=== PATIENT | female | born 1945 | race Caucasian/White ===

== ENCOUNTER → 2016-09-05 | Outpatient (REF) | payer MEDICARE, OTHER ==
[~2016-09-05] MED LIST: /ATOR40TA; /WARF5TA; AVALIDE; BABY81CH; CALCCHW12; PERC5TAB8; SYNT50TA; XALATAN
== END ==
LOC: M LAB REF 12:48
PROVIDERS: ATTEND Family Medicine
DX: Z01.89 Encounter for other specified special examinations (principal)

== ENCOUNTER → 2016-10-10 | Outpatient (CLI) | payer MEDICARE, BC, OTHER ==
[~2016-10-10] MED LIST changes: +ASPI1TAB PO; +ATOR40TA75 PO; +BROM0.07 OS; +CALCTAB75 PO; +CO Q200C10 PO; +LATA5OPD OU; +LEVO75TA4 PO; +LOSA50TA5 PO; +PRED1SUS OS; +PREDOPD OS; +TIMO5OPG OU; +[UNRECOGNIZED DRUG - OTHER] OS
--- NOTE | 2016-10-10 13:32 | REP ---
PA and lateral chest: Comparison is a 02/17/2008. Lung michelle are clear. Cardiac size is normal. The tiara and mediastinum are unremarkable and unchanged. There is surgical fusion of the lumbar spine as an interval change. Impression: Essentially negative PA and lateral chest. There is no interval change except for interval surgical fusion of the lumbar spine. Signed by Chuy Campos MD 10/10/2016 01:24 P
[2016-10-10 14:09] LABS: ANION GAP 8 MEQ/L (8-16); BLOOD UREA NITROGEN 13 MG/DL (7-18); CALCIUM LEVEL 9.4 MG/DL (8.8-10.2); CARBON DIOXIDE LEVEL 28 MEQ/L (21-32); CHLORIDE LEVEL 106 MEQ/L (98-107); CREATININE FOR GFR 0.86 MG/DL (0.55-1.02); GLOMERULAR FILTRATION RATE > 60.0 (>39); GLUCOSE, FASTING 93 MG/DL (83-110); POTASSIUM SERUM 3.8 MEQ/L (3.5-5.1); SODIUM LEVEL 142 MEQ/L (136-145)
--- NOTE | 2016-10-10 21:20 | ECGEPIP ---
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
== END ==
LOC: M LAB 12:43
PROVIDERS: ATTEND Ophthalmology
DX: Z01.818 Encounter for other preprocedural examination (principal); E78.00 Pure hypercholesterolemia, unspecified; I49.9 Cardiac arrhythmia, unspecified; R94.31 Abnormal electrocardiogram [ECG] [EKG]

== ENCOUNTER 2016-12-17 08:49 | Emergency (ER) | payer MEDICARE, BC, OTHER ==
[~2016-12-17] VITALS: Ht 165.1 cm; Wt 67.3 kg
[~2016-12-17 08:49] MED LIST changes: -PRED1SUS OS
[2016-12-17 08:52] VITALS: BP 161/71
[2016-12-17] MEDS ORDERED: PRED1SUS OS ×2 (09:23→09:29)
== END 2016-12-17 09:34 | disposition home or self-care (01) ==
LOC: M ED 08:49
DX: H53.8 Other visual disturbances (principal); E03.9 Hypothyroidism, unspecified; Z79.899 Other long term (current) drug therapy; Z79.82 Long term (current) use of aspirin; Z88.8 Allergy status to other drugs, medicaments and biological substances

== ENCOUNTER 2016-12-18 07:59 | Outpatient (CLI) | payer MEDICARE, BC, OTHER ==
[~2016-12-18] VITALS: Ht 165.1 cm; Wt 67.1 kg
[~2016-12-18 07:59] MED LIST changes: +PRED1SUS OS
[2016-12-18] MEDS ORDERED: NS 1,000 ML IV ONE (08:15)
[2016-12-18] MEDS ORDERED: PROPOFOL 200 MG/20 ML VIAL As Ordered ONE ×2 (09:00→09:26)
--- NOTE | 2016-12-18 09:18 | ROOR ---
Patient Name: Laura Berry Procedure Date: 12/18/2016 8:53 AM Date of : 1945 Age: 71 Room: [facility] Gender: Female Note Status: Finalized Procedure: Total Colonoscopy to Cecum + Biopsy Polypectomy Indications: High risk colon cancer surveillance: Personal history of colonic polyps, Last colonoscopy: 2013 Providers: Dave Allison MD Referring MD: Ernst Mcconnell MD Requesting Provider: Medicines: Monitored Anesthesia Care Complications: No immediate complications. Procedure: Pre-Anesthesia Assessment: - The heart rate, respiratory rate, oxygen saturations, blood pressure, adequacy of pulmonary ventilation, and response to care were monitored throughout the procedure. The Colonoscope was introduced through the anus and advanced to the cecum, identified by appendiceal orifice and ileocecal valve. The colonoscopy was performed without difficulty. The patient tolerated the procedure well. The quality of the bowel preparation was good. Findings: The perianal and digital rectal examinations were normal. Non-bleeding internal hemorrhoids were found during retroflexion. The hemorrhoids were mild, small and Grade I (internal hemorrhoids that do not prolapse). Multiple small and large-mouthed diverticula were found in the recto-sigmoid colon, sigmoid colon and descending colon. A small polyp was found in the rectum. The polyp was sessile. The polyp was removed with a jumbo cold forceps. Resection and retrieval were complete. The exam was otherwise without abnormality on direct and retroflexion views. Impression: - Non-bleeding internal hemorrhoids. - Diverticulosis in the recto-sigmoid colon, in the sigmoid colon and in the descending colon. - One small polyp in the rectum, removed with a jumbo cold forceps. Resected and retrieved. - The examination was otherwise normal on direct and retroflexion views. - The exam was otherwise normal to the cecum. Recommendation: - Patient has a contact number available for emergencies. The signs and symptoms of potential delayed complications were discussed with the patient. Return to normal activities tomorrow. Written discharge instructions were provided to the patient. - High fiber diet. - Discharge patient to home. - Continue present medications. - Await pathology results. - Telephone GI clinic for pathology results in 1 week. - Repeat colonoscopy for symptoms only. - Return to referring physician. Dave Allison MD Dave Allison MD 12/18/2016 9:18:22 AM This report has been signed electronically. Number of Addenda: 0 Note Initiated On: 12/18/2016 8:53 AM Estimated Blood Loss: Estimated blood loss: none.
[2016-12-18 09:39] VITALS: BP 132/73
== END 2016-12-18 09:46 | disposition home or self-care (01) ==
LOC: M OPP 07:59
PROVIDERS: ATTEND Internal Medicine Gastroenterology
DX: Z12.11 Encounter for screening for malignant neoplasm of colon (principal); Z86.010 Personal history of colon polyps; K62.1 Rectal polyp; K64.0 First degree hemorrhoids; K57.30 Diverticulosis of large intestine without perforation or abscess without bleeding; I10 Essential (primary) hypertension; E78.5 Hyperlipidemia, unspecified; E03.9 Hypothyroidism, unspecified; M19.90 Unspecified osteoarthritis, unspecified site; M54.9 Dorsalgia, unspecified; M25.60 Stiffness of unspecified joint, not elsewhere classified; H91.93 Unspecified hearing loss, bilateral; Z96.641 Presence of right artificial hip joint; Z88.8 Allergy status to other drugs, medicaments and biological substances; Z91.030 Bee allergy status; Z79.82 Long term (current) use of aspirin; Z79.899 Other long term (current) drug therapy

== ENCOUNTER 2017-04-12 08:01 | Day surgery (SDC) | payer MEDICARE, BC, OTHER ==
[~2017-04-12 08:01] MED LIST changes: -/ATOR40TA; -/WARF5TA; -ASPI1TAB PO; -ATOR40TA75 PO; -AVALIDE; -BABY81CH; -BROM0.07 OS; -CALCCHW12; -CALCTAB75 PO; -CO Q200C10 PO; -LATA5OPD OU; -LEVO75TA4 PO; -LOSA50TA5 PO; +MIDAZOLAM INJ 2 MG/2 ML VIAL (J2250) As Ordered; -PERC5TAB8; -PRED1SUS OS; -PREDOPD OS; -SYNT50TA; -TIMO5OPG OU; -XALATAN; -[UNRECOGNIZED DRUG - OTHER] OS; +fentaNYL 100 MCG/2 ML INJECTION (J3010) As Ordered
[2017-04-12] MEDS: POVIDONE-IODINE 5% OPHTH PREP SOL 30ML As Ordered (10:20)
[2017-04-12] MEDS: BALANCED SALT IRRIGATION SOLUTION 500ML BAG (FOR OR EYE MACHINE) As Ordered (10:20)
[2017-04-12] MEDS: LIDOCAINE 0.75%/EPINEPHRINE 0.025% IN BSS 1ML SYR INTRACAMERAL (OR ONLY) As Ordered (10:21)
[2017-04-12] MEDS: CEFUROXIME 1MG/0.1ML INTRACAMERAL INJ As Ordered (10:21)
[2017-04-12] MEDS: ACETYLCHOLINE OPHTH SOLN 1% 2ML (MIOCHOL-E) As Ordered (10:21)
[2017-04-12] MEDS: DUOVISC (0.50ML VISCOAT/0.55ML PROVISC) OPHTH KIT As Ordered ×3 (10:21→10:35)
[2017-04-12] MEDS: TRIAMCINOLONE PRES FR 40 MG/ML 1ML(TRIESENCE)(OR EYE ONLY)(J3300 PER 1MG) As Ordered (10:43)
[2017-04-12] MEDS ORDERED: MIDAZOLAM INJ 2 MG/2 ML VIAL (J2250) As Ordered (11:02)
[2017-04-12] MEDS: TOBRADEX OPHTH OINT 3.5 GM As Ordered (11:27)
[2017-04-12] MEDS ORDERED: ACETAMINOPHEN 325 MG TAB As Ordered (11:55)
[2017-04-12] MEDS: ACETAMINOPHEN TAB 650MG DOSE (2X325MG) PO (12:00)
[2017-04-12] MEDS: LR 1,000 ML IV (12:00)
[2017-04-12] MEDS ORDERED: fentaNYL 100 MCG/2 ML INJECTION (J3010) As Ordered (12:18)
== END 2017-04-12 12:25 | disposition home or self-care (01) ==
LOC: M SDC 08:01
DX: H27.112 Subluxation of lens, left eye (principal); H59.88 Other intraoperative complications of eye and adnexa, not elsewhere classified; H43.02 Vitreous prolapse, left eye; I10 Essential (primary) hypertension; E03.9 Hypothyroidism, unspecified; E78.00 Pure hypercholesterolemia, unspecified; M54.9 Dorsalgia, unspecified; M19.90 Unspecified osteoarthritis, unspecified site; Z88.8 Allergy status to other drugs, medicaments and biological substances; Z91.030 Bee allergy status; Z79.899 Other long term (current) drug therapy; Z79.82 Long term (current) use of aspirin
CPT/HCPCS: 66986

== ENCOUNTER → 2017-04-26 | Outpatient (REF) | payer MEDICARE, BC, OTHER | LOC: M LAB REF 17:44 | DX: H44.009 Unspecified purulent endophthalmitis, unspecified eye (principal) | CPT/HCPCS: 87186 ==

== ENCOUNTER → 2020-08-24 | Outpatient (CLI) | payer MEDICARE, BC ==
[~2020-08-24] MED LIST changes: +ASPI81TA26 PO; +ATOR40TA75 PO; +AVALIDE; +BABY81CH; +BROM0.07 OS; +CALCCHW12; +CALCTAB75 PO; +CO Q200C10 PO; +COUM1TAB17; +FLAXOIL3 PO; +LATA0.0013 OU; +LEVO75TA4 PO; +LIPI1TAB2; +LOSA50TA5 PO; -MIDAZOLAM INJ 2 MG/2 ML VIAL (J2250) As Ordered; +PERC5TAB8; +PRED1SUS2 OS; +PREDOPD OS; +SYNT50TA; +TIMO0.5S7 OU; +XALATAN; +[UNRECOGNIZED DRUG - OTHER] OS; -fentaNYL 100 MCG/2 ML INJECTION (J3010) As Ordered
--- NOTE | 2020-08-24 12:57 | REPMRS ---
Patient History The patient states she has not had a clinical breast exam in over a year. No known family history of cancer. Took hormonal contraceptives for 8 years. Benign left breast biopsy. Tomosynthesis is performed. [place] breast density is b . [facility] No breast complaints today, pt stated occasional breast tenderness. Pfizer vaccine 04/01/20 left arm. 04/22/20 left arm. Patient has signed MRS History Sheet. Digital Woman Screen Mammo: August 24, 2020 - Exam #: [id number] Bilateral CC and MLO view(s) were taken. Technologist: RT Cheryl Prior study comparison: August 18, 2019, bilateral digital mammo screening bilat, performed at [facility]. July 30, 2018, bilateral digital mammo screening bilat, performed at [facility]. FINDINGS: The breast tissue is heterogeneously dense. This may lower the sensitivity of mammography. There has been no change in the appearance of the mammogram from the prior studies. There is a moderate amount of residual fibroglandular tissue which is fairly symmetric. There is no interval development of dominant mass, areas of architectural distortion, or clustered microcalcification typical of malignancy. Assessment: BI-RADS/ACR category 1 mammogram. Negative Mammogram. Recommendation Routine screening mammogram in 1 year (for women over age 40). This mammogram was interpreted with the aid of an FDA-approved computer-aided dectection system. Electronically Signed By: Chuy Moreno MD 08/24/20 [id number]
== END ==
LOC: M WHC 07:59
PROVIDERS: ATTEND Family Medicine
DX: Z12.31 Encounter for screening mammogram for malignant neoplasm of breast (principal)

== ENCOUNTER → 2020-12-20 | Outpatient (REF) | payer MEDICARE, BC | LOC: M LAB REF 16:56 | PROVIDERS: ATTEND Family Medicine | DX: R30.0 Dysuria (principal) ==

== ENCOUNTER → 2020-12-28 | Outpatient (REF) | payer MEDICARE, BC | LOC: M LAB REF 16:08 | PROVIDERS: ATTEND Nurse Practitioner Adult Health | DX: N39.0 Urinary tract infection, site not specified (principal) ==

== ENCOUNTER → 2021-09-12 | Outpatient (CLI) | payer MEDICARE, BC, OTHER | LOC: M WHC 06:50 | PROVIDERS: ATTEND Family Medicine | DX: Z12.31 Encounter for screening mammogram for malignant neoplasm of breast (principal); Z92.29 Personal history of other drug therapy ==

== ENCOUNTER → 2021-11-15 | Outpatient (CLI) | payer MEDICARE, BC, OTHER | LOC: M WUC 11:22 | PROVIDERS: ATTEND Physician Assistant Medical | DX: R22.0 Localized swelling, mass and lump, head (principal) ==

== ENCOUNTER → 2022-09-13 | Outpatient (CLI) | payer MEDICARE, BC, OTHER | LOC: M WHC 07:04 | PROVIDERS: ATTEND Family Medicine | DX: Z12.31 Encounter for screening mammogram for malignant neoplasm of breast (principal) ==

== ENCOUNTER 2022-12-21 09:48 | Day surgery (SDC) | payer MEDICARE, BC, OTHER ==
[~2022-12-21] VITALS: Ht 165.1 cm; Wt 65.8 kg
[~2022-12-21 09:48] MED LIST changes: +CALC-190 PO; +FLAX1300 PO; +ISTA0.5S OD; +NS 1,000 ML IV ONE; +PROBCAP14 PO; +THERTAB52 PO; +XALA0.007 OD
[2022-12-21] MEDS ORDERED: propofoL 200 MG/20 ML VIAL As Ordered ONE (10:59)
[2022-12-21] MEDS ORDERED: LIDOCAINE 2% 100MG/5ML SDV (FOR ANES.) As Ordered ONE (10:59)
[2022-12-21] MEDS ORDERED: ePHEDrine SULFATE 25 MG/5 ML(5MG/ML) SYRINGE As Ordered ONE (11:30)
[2022-12-21 11:36] VITALS: TEMP 97.2
[2022-12-21 12:08] VITALS: BP 134/86; O2SAT 95
== END 2022-12-21 13:01 | disposition home or self-care (01) ==
LOC: M OPP 09:48
PROVIDERS: ATTEND Surgery
DX: Z12.11 Encounter for screening for malignant neoplasm of colon (principal); Z86.010 Personal history of colon polyps; K57.30 Diverticulosis of large intestine without perforation or abscess without bleeding; Z79.02 Long term (current) use of antithrombotics/antiplatelets; Z79.82 Long term (current) use of aspirin; Z79.890 Hormone replacement therapy; Z79.899 Other long term (current) drug therapy; E03.9 Hypothyroidism, unspecified

== ENCOUNTER → 2023-09-17 | Outpatient (CLI) | payer MEDICARE, BC ==
[~2023-09-17] MED LIST changes: -NS 1,000 ML IV ONE
== END ==
LOC: M WHC 07:47
PROVIDERS: ATTEND Family Medicine
DX: Z12.31 Encounter for screening mammogram for malignant neoplasm of breast (principal)

== ENCOUNTER → 2023-12-28 | Outpatient (CLI) | payer MEDICARE, BC | LOC: M PLARAD 12:20 | PROVIDERS: ATTEND Orthopaedic Surgery | DX: M47.892 Other spondylosis, cervical region (principal) ==